=== PATIENT | female | born 1955 | race African-American/Black ===

== ENCOUNTER → 2017-05-14 | Outpatient (CLI) | payer BC ==
[~2017-05-14] MED LIST: CONTRAST GIVEN MC PRN; IOHEXOL 240 MG/ML 50ML VIAL. ONE; IOHEXOL 240 MG/ML 50ML VIAL. PO ONE; IOHEXOL 300 MG/ML 75 ML VIAL IV ONE; IOHEXOL 300 MG/ML 75 ML VIAL ONE
--- NOTE | 2017-05-14 09:26 | RAD ---
Indication umbilical hernia. Axial images through the abdomen and pelvis were obtained. Both oral and IV contrast were administered. 75 cc of Omnipaque 300 was administered intravenously. Note is made of a previous examination 02/24/2008. The lung bases appear clear. There is very tiny periumbilical hernia containing only fat and appearing uncomplicated. The liver and spleen appear unremarkable and the gallbladder appears grossly normal. No pancreatic abnormality is seen. There are no adrenal masses. The kidneys appear normal apart from minute left renal calculus. No mass inflammatory process or acute finding in the abdomen is seen. No acute or significant finding is seen in the pelvis. IMPRESSION: No acute or significant finding seen in the abdomen or pelvis PQRS Compliance Statement: One or more of the following individualized dose reduction techniques were utilized for this examination: 1. Automated exposure control 2. Adjustment of the mA and/or kV according to patient size 3. Use of iterative reconstruction technique
== END | disposition home or self-care (01) ==
LOC: CT 07:14
PROVIDERS: ATTEND Physician Assistant
DX: K42.9 Umbilical hernia without obstruction or gangrene (principal)
CPT/HCPCS: 74177; Q9966; Q9967